=== PATIENT | male | born 1995 | race Caucasian/White ===

== ENCOUNTER 2021-01-09 11:29 | Emergency (ER) | payer OTHER ==
[~2021-01-09 11:29] MED LIST: CLEOCIN 150MG150 MG PO; IBUPROFEN600 MG PO; MECLIZINE HCL25 MG PO; NORCO 5-325 TA1 EACH PO; PENVEE K 500 M500 MG PO; ZOFRAN4 MG PO
[2021-01-09 12:15] LABS: HEMOGLOBIN 15.2 gm/dl (14.0-17.5); RED BLOOD COUNT 4.84 M/UL (4.20-5.50); WHITE BLOOD COUNT 5.4 K/UL (4.5-11.0)
[2021-01-09 12:37] LABS: BUN/CREATININE RATIO 12 (0-10)
[2021-01-09] MEDS ORDERED: ZOFRAN ODT 4 MG4 MG PO (13:29)
[2021-01-09] MEDS ORDERED: BENTYL 10MG CAP10 MG PO (13:29)
[2021-01-09] MEDS ORDERED: IBU800 MG PO (13:29)
== END 2021-01-09 13:34 | disposition home or self-care (01) ==
LOC: ER1 11:29
DX: R10.32 Left lower quadrant pain (principal); Z88.0 Allergy status to penicillin
CPT/HCPCS: 80053; 81001; 83690; 85025; 99284

== ENCOUNTER 2021-09-10 13:12 | Emergency (ER) | payer OTHER ==
[~2021-09-10 13:12] MED LIST changes: +BENTYL 10MG CAP10 MG PO; +IBU800 MG PO; +ZOFRAN ODT 4 MG4 MG PO
[2021-09-10 14:37] LABS: HEMOGLOBIN 13.8 gm/dl (14.0-17.5); RED BLOOD COUNT 4.44 M/UL (4.20-5.50); WHITE BLOOD COUNT 4.5 K/UL (4.5-11.0)
[2021-09-10 15:11] LABS: BUN/CREATININE RATIO 7 (0-10)
[2021-09-10] MEDS ORDERED: CYCLOBENZAPRINE10 MG PO (15:50)
[2021-09-10] MEDS ORDERED: IBUPROFEN600 MG PO (15:50)
== END 2021-09-10 16:16 | disposition home or self-care (01) ==
LOC: ER1 13:12
PROVIDERS: Physician Assistant
DX: R07.89 Other chest pain (principal); R06.4 Hyperventilation; Z87.442 Personal history of urinary calculi; F17.290 Nicotine dependence, other tobacco product, uncomplicated; Z88.0 Allergy status to penicillin
CPT/HCPCS: 71045; 80053; 82550; 82553; 83690; 83874; 84484; 85025; 93005; 96374; 99285; J1885; Q0177